=== PATIENT | male | born 1970 | race American Indian/Alaskan Native ===

== ENCOUNTER 2018-11-13 05:28 | Observation (INO) | payer MEDICAID ==
--- NOTE | 2018-11-13 05:56 | C.PDOC ---
History Of Present Illness 48 year old male with PMHx of DM, HTN and HLD presents to the ED for evaluation of a syncopal episode. Patient reports that the got up to used the bathroom while urinating, the next he remembers was getting up from the floor. Patient reports having similar episode of passing out last month, he passed out in the side walk was taken to [facility] Patient reports he was told he had a "heart condition" and discharged. Patient also c/o epigastric abdominal pain. Patient states he has chronic shortness of breath that has been going on for a while, still a smoker. Patient is currently taking lantus for his diabetes. Patient denies fever, chills, nausea, vomit, changes in urination. <Chao St - Last Filed: 11/13/18 07:09> History Per: Patient History/Exam Limitations: no limitations Onset/Duration Of Symptoms: Hrs Current Symptoms Are (Timing): Still Present Number Of Syncopal Episodes: 1 Activity At Onset Of Symptoms: Standing Associated Symptoms Preceding Syncopal Episode: No Predromal Symptoms (Sudden Onset) Seizure Or Post-ictal Symptoms: None Severity: None Recent travel outside of the [place]: No Additional History Per: Patient <Chao St - Last Filed: 11/13/18 07:09> <Griselda Palma - Last Filed: 11/13/18 11:41> Time Seen by Provider: 11/13/18 05:35 Chief Complaint (Nursing): Syncope Past Medical History Reviewed: Historical Data, Nursing Documentation, Vital Signs Vital Signs: Last Vital Signs Temp 98 F 11/13/18 05:40 Pulse 55 L 11/13/18 05:40 Resp 18 11/13/18 05:40 BP 146/85 11/13/18 05:40 Pulse Ox 99 11/13/18 05:40 - Medical History PMH: Diabetes, HTN, Hyperlipidemia Surgical History: No Surg Hx Family History: States: Unknown Family Hx - Social History Hx Alcohol Use: No Hx Substance Use: No - Immunization History Hx Tetanus Toxoid Vaccination: No Hx Influenza Vaccination: No Hx Pneumococcal Vaccination: No <Chao St - Last Filed: 11/13/18 07:09> Vital Signs: Last Vital Signs Temp 98 F 11/13/18 05:40 Pulse 55 L 11/13/18 05:40 Resp 18 11/13/18 05:40 BP 146/85 11/13/18 05:40 Pulse Ox 99 11/13/18 07:10 <Griselda Palma - Last Filed: 11/13/18 11:41> Review Of Systems Constitutional: Negative for: Fever, Chills Eyes: Negative for: Redness, Other (scleral icterus) ENT: Negative for: Mouth Swelling Cardiovascular: Negative for: Chest Pain Respiratory: Positive for: Shortness of Breath (chronic as per patient). Negative for: Cough Gastrointestinal: Positive for: Abdominal Pain. Negative for: Nausea, Vomiting, Diarrhea Genitourinary: Negative for: Dysuria, Hematuria Musculoskeletal: Negative for: Back Pain Skin: Negative for: Rash Neurological: Negative for: Weakness, Numbness, Dizziness <Chao St Last Filed: 11/13/18 07:09> Physical Exam - Physical Exam Appears: Well, Non-toxic, No Acute Distress, Other (no obsvious signs of trauma) Skin: Normal Color, Warm, No Rash Head: Atraumatic, Normacephalic Eye(s): bilateral: Normal Inspection (no scleral icterus), PERRL, EOMI Ear(s): Bilateral: Normal (no drainage) Nose: Normal Oral Mucosa: Moist Throat: Normal, No Erythema, No Exudate, Other (no swelling or injection. Airway patent) Neck: Normal ROM, Supple Chest: Symmetrical Cardiovascular: Rhythm Regular Respiratory: No Accessory Muscle Use, Other (normal inspiratory effort) Gastrointestinal/Abdominal: Soft, No Distention Back: No CVA Tenderness Extremity: Capillary Refill (< 2 seconds) Extremity: Bilateral: Atraumatic, Normal ROM, Other (good strenght in all extremities) Pulses: Left Dorsalis Pedis: Normal, Right Dorsalis Pedis: Normal Neurological/Psych: Oriented x3, Normal Speech, Other (cranial nerves grossly intact) Gait: Steady <Chao St Last Filed: 11/13/18 07:09> ED Course And Treatment - Laboratory Results Result Diagrams: 11/13/18 06:13 11/13/18 06:13 O2 Sat by Pulse Oximetry: 99 (ON RA) Pulse Ox Interpretation: Normal <Chao St Last Filed: 11/13/18 07:09> - Laboratory Results Result Diagrams: 11/13/18 06:13 11/13/18 06:13 Lab Results: PT 11.3 SECONDS (9.7-12.2) 11/13/18 06:13 INR 1.0 11/13/18 06:13 D-Dimer, Quantitative Cancelled 11/13/18 06:13 Troponin I < 0.0120 ng/mL (0.00-0.120) 11/13/18 06:13 Total Bilirubin 0.6 mg/dL (0.2-1.3) 11/13/18 06:13 AST 32 U/L (17-59) 11/13/18 06:13 ALT 23 U/L (21-72) 11/13/18 06:13 Alkaline Phosphatase 55 U/L (38-126) 11/13/18 06:13 Total Protein 7.0 g/dL (6.3-8.3) 11/13/18 06:13 Albumin 3.9 g/dL (3.5-5.0) 11/13/18 06:13 Globulin 3.1 gm/dL (2.2-3.9) 11/13/18 06:13 Albumin/Globulin Ratio 1.3 (1.0-2.1) 11/13/18 06:13 Lipase 73 U/L (23-300) 11/13/18 06:13 Urine Color Yellow (YELLOW) 11/13/18 06:40 Urine Clarity Hazy (Clear) 11/13/18 06:40 Urine pH 5.0 (5.0-8.0) 11/13/18 06:40 Ur Specific [place] 1.012 (1.003-1.030) 11/13/18 06:40 Urine Protein Negative mg/dL (NEGATIVE) 11/13/18 06:40 Urine Glucose (UA) Normal mg/dL (Normal) 11/13/18 06:40 Urine Ketones Negative mg/dL (NEGATIVE) 11/13/18 06:40 Urine Blood Negative (NEGATIVE) 11/13/18 06:40 Urine Nitrate Negative (NEGATIVE) 11/13/18 06:40 Urine Bilirubin Negative (NEGATIVE) 11/13/18 06:40 Urine Urobilinogen Normal mg/dL (0.2-1.0) 11/13/18 06:40 Ur Leukocyte Esterase Neg Max/uL (Negative) 11/13/18 06:40 Urine WBC (Auto) < 1 /hpf (0-5) 11/13/18 06:40 Urine RBC (Auto) < 1 /hpf (0-3) 11/13/18 06:40 - CT Scan/US Head CT Other Rad Studies (CT/US): Interpreted By Me, Read By Radiologist CT/US Interpretation: Name:DEL CAMARILLO Exam Date:Nov 13, 2018 6:16:09 AM EDT. Modality Type:CT. Description:CT - BRAIN WITH CORONAL AND SAGITTAL MPRS. Gender:M Laterality:Not applicable. :66 Referring Physician:KRYSTLE Metzger. CT scan of the head. CLINICAL HISTORY: Headache. TECHNIQUE: Multiple axial CT images were obtained through the brain without IV contrast material. COMMENTS: There is normal configuration of sella turcica. There are no intra or extra-axial collections. There is no mass effect or midline shift. There is no evidence of hematoma formation. No hydrocephalus is present. The ventricles are symmetrical. No abnormal calcifications are present. There is diffuse age-appropriate cerebellar and cerebral atrophy with proportionally dilated ventricles and cortical sulci. There are bilateral periventricular and subcortical white matter hypolucencies compatible with mild chronic microvascular disease. Otherwise, no significant focal abnormalities are seen either in the posterior fossa or supratentorial compartment. IMPRESSION: 1. Age-appropriate cerebellar and cerebral atrophy. 2. Mild chronic microvascular disease. 3. No evidence of acute intracranial pathology. Thank you for your kind referral of this patient. . Electronically signed on Nov 13, 2018 7:21:09 AM EDT by: Akosua Powell M.D., Certified by SAMSON, MSK, Neuroradiology <Griselda Palma - Last Filed: 11/13/18 11:41> Medical Decision Making Medical Decision Making: Plan: * CT head * EKG * Labs * CXR * UA <Chao St - Last Filed: 11/13/18 07:09> Disposition <Chao St - Last Filed: 11/13/18 07:09> - Disposition Disposition Time: 11:41 <Griselda Palma - Last Filed: 11/13/18 11:41> - Disposition Disposition: HOSPITALIZED Condition: FAIR Forms: [employer] (Yi) - Clinical Impression Clinical Impression: Syncope - PA / [employer] / Resident Statement MD/DO has reviewed & agrees with the documentation as recorded. - Scribe Statement The provider has reviewed the documentation as recorded by the Scribe Gustavo Moore All medical record entries made by the Scribe were at my direction and person ally dictated by me. I have reviewed the chart and agree that the record accurately reflects my personal performance of the history, physical exam, medical decision making, and the department course for this patient. I have also personally directed, reviewed, and agree with the discharge instructions and disposition. <Chao St - Last Filed: 11/13/18 07:09> Physician Patient Turnover Patient Signed Over To: Griselda Palma Handoff Comments: syncope work up <Chao St - Last Filed: 11/13/18 07:09> Addendum Addendum: 11/13/18 11:31 EKG: Sinus bradycardia 51 bpm nonspecific T wave changes Accession No. : [id number] Patient Name / ID : RABIA MATHIS / [id number] Exam Date : 11/13/2018 09:48:17 ( Approved ) Study Comment : Sex / Age : M / 48Y Creator : Wayne Mittal MD Dictator : Wayne Mittal MD Incident Handler : [employer] Service Operator : Wayne Mittal MD Approver2 : Report Date : 11/13/2018 10:41:21 My Comment : Date of service: 11/13/2018 PROCEDURE: CT Chest with contrast (Pulmonary Angiogram) HISTORY: Syncope, elevated Ddimer COMPARISON: Correlation made with prior chest radiograph obtained earlier same day. TECHNIQUE: Axial computed tomography images were obtained of the chest in the pulmonary arterial phase of enhancement. Coronal and sagittal reformatted images were created and reviewed. Intravenous contrast dose: 100 cc Visipaque 320 Radiation dose: Total exam DLP = 630.31 mGy-cm. This CT exam was performed using one or more of the following dose reduction techniques: Automated exposure control, adjustment of the mA and/or kV according to patient size, and/or use of iterative reconstruction technique. FINDINGS: PULMONARY ARTERIES: The visualized portions of the pulmonary trunk, right and left main, lobar, segmental and proximal subsegmental branches of the pulmonary arteries are well opacified with obvious filling defects seen to suggest central pulmonary embolus. AORTA: No acute findings. No thoracic aortic aneurysm. No aortic atherosclerotic calcification or mural plaque present. LUNGS: Mild passive/dependent type atelectasis seen both posterior lower lung pizarro. Minimal linear scarring seen in the right middle lobe PLEURAL SPACES: Unremarkable. No effusion or pneumothorax. HEART: Unremarkable. Heart size borderline enlarged. No significant pericardial effusion. LYMPH NODES: There are several small nonspecific mediastinal lymph nodes Note also made of a small approximately 7 mm left parasagittal level 1-submental lymph node. Trachea midline and patent with no large central endoluminal lesions. BONES, CHEST WALL: Mild multilevel degenerative spondylosis of the thoracic spine. There are no acute compression fractures no retropulsed fragments. Minimal changes of bilateral gynecomastia OTHER FINDINGS: Minimal changes of bilateral gynecomastia. None IMPRESSION: No evidence of acute central pulmonary embolus. Mild passive/dependent type atelectasis both posterior lower lung pizarro. Accession No. : [id number] Patient Name / ID : RABIA MATHIS / [id number] Exam Date : 11/13/2018 06:16:09 ( Approved ) Study Comment : Sex / Age : M / 48Y Creator : Waylon Conte MD Dictator : Waylon Conte MD Incident Handler : [employer] Service Operator : Waylon Conte MD Approver2 : Report Date : 11/13/2018 08:40:08 My Comment : Date of service: 11/13/2018 PROCEDURE: CT HEAD WITHOUT CONTRAST. HISTORY: Headache. Evaluate for hemorrhage. COMPARISON: None available. TECHNIQUE: Axial computed tomography images were obtained through the head/brain without intravenous contrast. Radiation dose: Total exam DLP = 1186 mGy-cm. This CT exam was performed using one or more of the following dose reduction techniques: Automated exposure control, adjustment of the mA and/or kV according to patient size, and/or use of iterative reconstruction technique. FINDINGS: HEMORRHAGE: No intracranial hemorrhage. BRAIN: No mass effect or edema. Scattered focal lucencies in the subcortical and periventricular white matter suggestive for chronic microvascular ischemic change. Prominence of the bifrontal extra-axial spaces. Mild cerebellar atrophy. Diffuse generalized parenchymal atrophy. VENTRICLES: Unremarkable. No hydrocephalus. CALVARIUM: Unremarkable. PARANASAL SINUSES: Unremarkable as visualized. No significant inflammatory changes. MASTOID AIR CELLS: Unremarkable as visualized. No inflammatory changes. OTHER FINDINGS: None. IMPRESSION: No acute intracranial abnormality. Mild chronic microvascular ischemic changes. Diffuse generalized parenchymal atrophy. If symptoms persists, consider correlation with MRI. A preliminary report was generated at 7:21 a.m. on 11/13/[address] Akosua Powell [facility] who accepted patient to her service to [facility] for observation. <Griselda Palma - Last Filed: 11/13/18 11:41> Decision To Admit <Chao St - Last Filed: 11/13/18 07:09> - Pt Status Changed To: Hospital Disposition Of: Observation - . Bed Request Type: Telemetry Admitting Physician: Joslyn Fu <Griselda Palma - Last Filed: 11/13/18 11:41> - . Patient Diagnosis: Syncope
[2018-11-13 06:16] LABS: EOS # 0.2 K/uL (0.0-0.7); EOS % 3.4 % (0.0-4.0); HEMOGLOBIN 13.4 g/dL (12.0-18.0); LYMPH # 1.9 K/uL (1.0-4.3); LYMPH % 40.1 % (20.0-40.0); MEAN CORPUSCULAR HEMOGLOBIN 30.1 pg (27.0-31.0); MEAN CORPUSCULAR HGB CONC 33.1 g/dL (33.0-37.0); MEAN PLATELET VOLUME 7.4 fL (7.2-11.7); MONO # 0.3 K/uL (0.0-0.8); MONO % 7.2 % (0.0-10.0); NEUT # 2.2 K/uL (1.8-7.0); NEUT % 48.3 % (50.0-75.0); NRBC % 0.1 % (0.0-2.0); RBC 4.44 Mil/uL (4.40-5.90); RED CELL DISTRIBUTION WIDTH 13.9 % (11.5-14.5); WHITE BLOOD COUNT 4.6 K/uL (4.8-10.8)
[2018-11-13 06:32] LABS: ALB/GLOB RATIO 1.3 (1.0-2.1); ALBUMIN 3.9 g/dL (3.5-5.0); BLOOD UREA NITROGEN 13 mg/dL (9-20); CALCIUM 8.1 mg/dl (8.6-10.4); GFR NON-AFRICAN AMERICAN 58; LIPASE 73 U/L (23-300)
[2018-11-13 06:35] LABS: ALT/SGPT 23 U/L (21-72); AST/SGOT 32 U/L (17-59); PROTHROMBIN TIME 11.3 SECONDS (9.7-12.2)
[2018-11-13 06:45] LABS: URINE BILIRUBIN NEGATIVE (NEGATIVE); URINE BLOOD NEGATIVE (NEGATIVE); URINE CLARITY Hazy (Clear); URINE COLOR Yellow (YELLOW); URINE GLUCOSE (UA) NORMAL (Normal); URINE LEUKOCYTE ESTERASE NEG Leu/uL (Negative); URINE PROTEIN NEGATIVE (NEGATIVE); URINE UROBILINOGEN NORMAL mg/dL (0.2-1.0)
--- NOTE | 2018-11-13 08:43 | CT ---
Date of service: 11/13/2018 PROCEDURE: CT HEAD WITHOUT CONTRAST. HISTORY: Headache. Evaluate for hemorrhage. COMPARISON: None available. TECHNIQUE: Axial computed tomography images were obtained through the head/brain without intravenous contrast. Radiation dose: Total exam DLP = 1186 mGy-cm. This CT exam was performed using one or more of the following dose reduction techniques: Automated exposure control, adjustment of the mA and/or kV according to patient size, and/or use of iterative reconstruction technique. FINDINGS: HEMORRHAGE: No intracranial hemorrhage. BRAIN: No mass effect or edema. Scattered focal lucencies in the subcortical and periventricular white matter suggestive for chronic microvascular ischemic change. Prominence of the bifrontal extra-axial spaces. Mild cerebellar atrophy. Diffuse generalized parenchymal atrophy. VENTRICLES: Unremarkable. No hydrocephalus. CALVARIUM: Unremarkable. PARANASAL SINUSES: Unremarkable as visualized. No significant inflammatory changes. MASTOID AIR CELLS: Unremarkable as visualized. No inflammatory changes. OTHER FINDINGS: None. IMPRESSION: No acute intracranial abnormality. Mild chronic microvascular ischemic changes. Diffuse generalized parenchymal atrophy. If symptoms persists, consider correlation with MRI. A preliminary report was generated at 7:21 a.m. on 11/13/[address] Akosua Powell from [employer] [employer].
[2018-11-13] MEDS ORDERED: Iodixanol 320 MG/ML 100 ML BOTTLE IV ONE (09:14)
--- NOTE | 2018-11-13 09:58 | RAD ---
Date of service: 11/13/2018 HISTORY: Shortness of breath COMPARISON: No prior. TECHNIQUE: Chest PA and lateral FINDINGS: LUNGS: Mild venous congestion. Minimal patchy increased markings at the left lung base. PLEURA: No significant pleural effusion identified. No pneumothorax apparent. CARDIOVASCULAR: No aortic atherosclerotic calcification present. Tortuous ectatic aorta. Mild cardiomegaly. OSSEOUS STRUCTURES: Degenerative changes in the spine. VISUALIZED UPPER ABDOMEN: Normal. OTHER FINDINGS: None. IMPRESSION: Mild venous congestion. Minimal patchy increased markings at the left lung base.
--- NOTE | 2018-11-13 10:44 | CT ---
Date of service: 11/13/2018 PROCEDURE: CT Chest with contrast (Pulmonary Angiogram) HISTORY: Syncope, elevated Ddimer COMPARISON: Correlation made with prior chest radiograph obtained earlier same day. TECHNIQUE: Axial computed tomography images were obtained of the chest in the pulmonary arterial phase of enhancement. Coronal and sagittal reformatted images were created and reviewed. Intravenous contrast dose: 100 cc Visipaque 320 Radiation dose: Total exam DLP = 630.31 mGy-cm. This CT exam was performed using one or more of the following dose reduction techniques: Automated exposure control, adjustment of the mA and/or kV according to patient size, and/or use of iterative reconstruction technique. FINDINGS: PULMONARY ARTERIES: The visualized portions of the pulmonary trunk, right and left main, lobar, segmental and proximal subsegmental branches of the pulmonary arteries are well opacified with obvious filling defects seen to suggest central pulmonary embolus. AORTA: No acute findings. No thoracic aortic aneurysm. No aortic atherosclerotic calcification or mural plaque present. LUNGS: Mild passive/dependent type atelectasis seen both posterior lower lung pizarro. Minimal linear scarring seen in the right middle lobe PLEURAL SPACES: Unremarkable. No effusion or pneumothorax. HEART: Unremarkable. Heart size borderline enlarged. No significant pericardial effusion. LYMPH NODES: There are several small nonspecific mediastinal lymph nodes Note also made of a small approximately 7 mm left parasagittal level 1-submental lymph node. Trachea midline and patent with no large central endoluminal lesions. BONES, CHEST WALL: Mild multilevel degenerative spondylosis of the thoracic spine. There are no acute compression fractures no retropulsed fragments. Minimal changes of bilateral gynecomastia OTHER FINDINGS: Minimal changes of bilateral gynecomastia. None IMPRESSION: No evidence of acute central pulmonary embolus. Mild passive/dependent type atelectasis both posterior lower lung pizarro.
[2018-11-13] MEDS ORDERED: Glucagon Recombinant 1 mg Inj IM PRN (13:00)
[2018-11-13] MEDS ORDERED: Dextrose 50% SYRINGE Inj (50 ml) IV PRN (13:00)
--- NOTE | 2018-11-13 16:36 | CP.PCM.CON ---
History of Present Illness - History of Present Illness History of Present Illness: 48 year old male with PMHx of DM, HTN and HLD presents to the ED for evaluation of a syncopal episode. Patient reports that the got up to used the bathroom while urinating, the next he remembers was getting up from the floor. Patient r dean having similar episode of passing out last month, he passed out in the side walk was taken to [facility] [place]. Patient reports he was told he had a "heart condition" and discharged. Patient also c/o epigastric abdominal pain. Patient states he has chronic shortness of breath that has been going on for a while, still a smoker. Patient is currently taking lantus for his diabetes. Patient denies fever, chills, nausea, vomit, changes in urination. Past Patient History - Infectious Disease Hx of Infectious Diseases: None - Past Social History Smoking Status: Light Smoker < 10 Cigarettes Daily - CARDIAC Hx Hypertension: Yes - ENDOCRINE/METABOLIC Hx Diabetes Insipidus: Yes - PSYCHIATRIC Hx Substance Use: No - SURGICAL HISTORY Hx Surgeries: No - ANESTHESIA Hx Anesthesia: No Meds Allergies/Adverse Reactions: Allergies Allergy/AdvReac Type Severity Reaction Status Date / Time ibuprofen [From Motrin] Allergy Verified 11/13/18 05:36 - Medications Medications: Current Medications Aspirin (Ecotrin) 81 mg PO DAILY [facility] Dextrose (Dextrose 50% Inj) 0 ml IV STAT PRN; Protocol PRN Reason: Hypoglycemia Protocol Dextrose (Glutose 15) 0 gm PO ONCE PRN; Protocol PRN Reason: Hypoglycemia Protocol Glucagon (Glucagen Diagnostic Kit) 0 mg IM STAT PRN; Protocol PRN Reason: Hypoglycemia Protocol Dextrose (Dextrose 5% In Water 1000 Ml) 1,000 mls @ 0 mls/hr IV .Q0M PRN; Protocol PRN Reason: Hypoglycemia Protocol Insulin Human Regular (Novolin R) 0 unit SC ACHS [facility]; Protocol Metformin HCl (Glucophage) 500 mg PO BIDCC SAIDA Rosuvastatin Calcium (Crestor) 5 mg PO QD5 [facility] Physical Exam - Head Exam Head Exam: NORMOCEPHALIC - Neck Exam Neck exam: Positive for: Normal Inspection - Respiratory Exam Respiratory Exam: NORMAL BREATHING PATTERN - Cardiovascular Exam Cardiovascular Exam: REGULAR RHYTHM - Neurological Exam Neurological exam: Alert, Oriented x3 Results - Vital Signs Recent Vital Signs: Last Vital Signs Temp 98.1 F 11/13/18 12:38 Pulse 75 11/13/18 15:30 Resp 18 11/13/18 12:38 BP 148/96 H 11/13/18 12:38 Pulse Ox 98 11/13/18 12:38 - Labs Result Diagrams: 11/13/18 06:13 11/13/18 06:13 Labs: Laboratory Results - last 24 hr 11/13/18 11/13/18 11/13/18 05:43 06:13 06:13 WBC 4.6 L RBC 4.44 Hgb 13.4 Hct 40.4 MCV 91.0 MCH 30.1 MCHC 33.1 RDW 13.9 Plt Count 305 MPV 7.4 Neut % (Auto) 48.3 L Lymph % (Auto) 40.1 H [place] % (Auto) 7.2 Eos % (Auto) 3.4 Baso % (Auto) 1.0 Neut # (Auto) 2.2 Lymph # (Auto) 1.9 [place] # (Auto) 0.3 Eos # (Auto) 0.2 Baso # (Auto) 0.0 PT 11.3 INR 1.0 D-Dimer, Quantitative Cancelled Sodium Potassium Chloride Carbon Dioxide Anion Gap BUN Creatinine Est GFR ( Amer) Est GFR (Non-Af Amer) POC Glucose (mg/dL) 109 Random Glucose Calcium Total Bilirubin AST ALT Alkaline Phosphatase Troponin I Total Protein Albumin Globulin Albumin/Globulin Ratio Lipase Urine Color Urine Clarity Urine pH Ur Specific [place] Urine Protein Urine Glucose (UA) Urine Ketones Urine Blood Urine Nitrate Urine Bilirubin Urine Urobilinogen Ur Leukocyte Esterase Urine WBC (Auto) Urine RBC (Auto) Alcohol, Quantitative 11/13/18 11/13/18 11/13/18 06:13 06:40 07:40 WBC RBC Hgb Hct MCV MCH MCHC RDW Plt Count MPV Neut % (Auto) Lymph % (Auto) [place] % (Auto) Eos % (Auto) Baso % (Auto) Neut # (Auto) Lymph # (Auto) [place] # (Auto) Eos # (Auto) Baso # (Auto) PT INR D-Dimer, Quantitative 370 H Sodium 135 Potassium 4.4 Chloride 102 Carbon Dioxide 29 Anion Gap 8 L BUN 13 Creatinine 1.3 Est GFR ( Amer) > 60 Est GFR (Non-Af Amer) 58 POC Glucose (mg/dL) Random Glucose 93 Calcium 8.1 L Total Bilirubin 0.6 AST 32 ALT 23 Alkaline Phosphatase 55 Troponin I < 0.0120 Total Protein 7.0 Albumin 3.9 Globulin 3.1 Albumin/Globulin Ratio 1.3 Lipase 73 Urine Color Yellow Urine Clarity Hazy Urine pH 5.0 Ur Specific [place] 1.012 Urine Protein Negative Urine Glucose (UA) Normal Urine Ketones Negative Urine Blood Negative Urine Nitrate Negative Urine Bilirubin Negative Urine Urobilinogen Normal Ur Leukocyte Esterase Neg Urine WBC (Auto) < 1 Urine RBC (Auto) < 1 Alcohol, Quantitative < 10 11/13/18 12:37 WBC RBC Hgb Hct MCV MCH MCHC RDW Plt Count MPV Neut % (Auto) Lymph % (Auto) [place] % (Auto) Eos % (Auto) Baso % (Auto) Neut # (Auto) Lymph # (Auto) [place] # (Auto) Eos # (Auto) Baso # (Auto) PT INR D-Dimer, Quantitative Sodium Potassium Chloride Carbon Dioxide Anion Gap BUN Creatinine Est GFR ( Amer) Est GFR (Non-Af Amer) POC Glucose (mg/dL) 105 Random Glucose Calcium Total Bilirubin AST ALT Alkaline Phosphatase Troponin I Total Protein Albumin Globulin Albumin/Globulin Ratio Lipase Urine Color Urine Clarity Urine pH Ur Specific [place] Urine Protein Urine Glucose (UA) Urine Ketones Urine Blood Urine Nitrate Urine Bilirubin Urine Urobilinogen Ur Leukocyte Esterase Urine WBC (Auto) Urine RBC (Auto) Alcohol, Quantitative Assessment & Plan (1) Syncope Assessment and Plan: sypmtoms suggestive of Vasovagal. Cardiac work-up negative so far. Consider Tilt table and Event monitor. Status: Acute
--- NOTE | 2018-11-13 17:01 | CON ---
DATE: 11/13/2018 CHIEF COMPLAINT: Syncope. HISTORY OF PRESENT ILLNESS: This is a 48-year-old male with history of type 2 diabetes mellitus, hypertension, dyslipidemia here for evaluation of syncopal episode. Apparently, the patient had got up to use the bathroom. While urinating, the next thing he remembers he is on the floor. The patient had a similar episode a few weeks ago when he passed out while he was walking and was taken to [facility] where he had negative workup. Currently, he denies any focal weakness. He had some mild chronic shortness of breath. Otherwise no focal weakness or paresthesias of the extremities. PAST MEDICAL HISTORY: As above. SOCIAL HISTORY: No illicit drug abuse, smoking, or ETOH abuse at this time. ALLERGIES: IBUPROFEN. FAMILY HISTORY: Noncontributory. REVIEW OF SYSTEMS: A 14-point review of system is negative except for the HPI. LABORATORY DATA: Sodium is 135, potassium 4.4, chloride 102, carbon dioxide 29, BUN of 13, creatinine of 1.3, blood glucose of 105. PHYSICAL EXAMINATION: GENERAL: The patient is sitting up in bed, no acute distress. VITAL SIGNS: Temperature 98, pulse rate of 62, blood pressure 153/82, respiratory rate of 18, oxygen saturation 100% on room air. HEENT: Atraumatic, normocephalic. PERRLA. Extraocular muscles are intact. NECK: Supple. No JVD. No adenopathy. LUNGS: Clear to auscultation. No adventitious sounds. HEART: S1 and S2. Normal rate and rhythm. No murmurs, rubs, or gallops. ABDOMEN: Soft, nontender, nondistended. Bowel sounds present. EXTREMITIES: No clubbing, no cyanosis. Peripheral pulses 2+ felt bilaterally. NEUROLOGICAL: The patient is alert and oriented to person and place, month and year. Cranial nerves II through XII intact. Motor exam: Moves all extremities equally. Tone is normal. Sensory exam: Mild decrease in sensation up to the calves bilaterally. Decreased vibration of the toes. DTRs are 2+ throughout. Coordination, finger-nose intact. No dysmetria noted. Gait is deferred for now. IMPRESSION: Syncope, most likely of the vasovagal type rather than seizure. Vasovagal is most likely to micturition syncope. PLAN: At this time, will recommend: 1. Monitor blood sugar, keep it between 140 to 180. 2. Aspirin 81 mg and Crestor 5 mg for stroke prevention. 3. Monitor hydration throughout the day. 4. Carotid Doppler. 5. He is clinically stable from my standpoint. Thank you for this consultation. Neftali Espitia MD
[2018-11-13] MEDS: (Novolin R) Insulin Human Regular 100 units/ml vial SC SCH ×2 (17:42→21:58)
[2018-11-14 08:26] VITALS: RESP 20
[2018-11-14] MEDS ORDERED: Enoxaparin 40 mg Syringe SC SCH (10:00)
--- NOTE | 2018-11-14 12:44 | CARD ---
APPROVED REPORT Date of service: 11/13/2018 EKG Measurement Heart [id number] <Conclusion> Sinus bradycardia Nonspecific T wave abnormality Abnormal ECG
[2018-11-14] MEDS: (Novolin R) Insulin Human Regular 100 units/ml vial SC SCH ×3 (14:24→18:06)
[2018-11-14 15:40] VITALS: PULSE 78
[2018-11-14 16:28] VITALS: BP 136/77; TEMP 98.8; O2SAT 100
[2018-11-14 17:30] LABS: IRON < 10 ug/dL (49-181); TOTAL IRON BINDING CAPACITY 182 ug/dL (250-450)
[2018-11-14 17:31] LABS: % IRON SATURATION 0.6 (20-55)
--- NOTE | 2018-11-14 19:03 | CP.PCM.PN ---
Subjective - Date & Time of Evaluation Date of Evaluation: 11/14/18 Time of Evaluation: 19:02 - Subjective Subjective: No new episodes of syncope. bed side. wants to go home. Objective - Vital Signs/Intake and Output Vital Signs (last 24 hours): Temp Pulse Resp BP Pulse Ox 98.8 F 78 20 136/77 100 11/14/18 15:15 11/14/18 15:30 11/14/18 15:15 11/14/18 15:15 11/14/18 15:15 - Medications Medications: Current Medications Aspirin (Ecotrin) 81 mg PO DAILY [facility] Last Admin: 11/14/18 10:27 Dose: 81 mg Dextrose (Dextrose 50% Inj) 0 ml IV STAT PRN; Protocol PRN Reason: Hypoglycemia Protocol Dextrose (Glutose 15) 0 gm PO ONCE PRN; Protocol PRN Reason: Hypoglycemia Protocol Enoxaparin Sodium (Lovenox) 40 mg SC DAILY [facility] Last Admin: 11/14/18 10:27 Dose: 40 mg Glucagon (Glucagen Diagnostic Kit) 0 mg IM STAT PRN; Protocol PRN Reason: Hypoglycemia Protocol Dextrose (Dextrose 5% In Water 1000 Ml) 1,000 mls @ 0 mls/hr IV .Q0M PRN; Protocol PRN Reason: Hypoglycemia Protocol Insulin Human Regular (Novolin R) 0 unit SC ACHS [facility]; Protocol Last Admin: 11/14/18 18:06 Dose: Not Given Metformin HCl (Glucophage) 500 mg PO BIDCC [facility] Last Admin: 11/14/18 18:05 Dose: 500 mg Rosuvastatin Calcium (Crestor) 5 mg PO QD5 [facility] - Labs Labs: 11/13/18 06:13 11/13/18 06:13 PT 11.3 SECONDS (9.7-12.2) 11/13/18 06:13 INR 1.0 11/13/18 06:13 Assessment and Plan (1) Syncope Status: Acute
[2018-11-14 19:44] LABS: FOLATE 9.6 ng/mL
--- NOTE | 2018-11-14 21:07 | CP.PCM.PCO ---
Physician Communication Note - Physician Communication Note Physician Communication Note: Pt requested to leave AMA. Pt A&Ox3, informed the risks. Pt signed AMA.
--- NOTE | 2018-11-15 06:50 | HP ---
CHIEF COMPLAINT: Passing out. HISTORY OF PRESENT ILLNESS: The patient is a 48-year-old male with past medical history of diabetes mellitus, hypertension, hypercholesterolemia, came to the emergency room for evaluation of syncope. The patient reports that he got up to use his bathroom. While urinating, the next remember was getting up from the floor. The patient is reporting having similar episode of passing out. Last month, he passed out in the sidewalk, was taken to [facility]. The patient reports he was told had heart condition and discharged. The patient is also complaining of epigastric abdominal pain. The patient states that he has chronic shortness of breath that has been going on for a while, still is actively smoking. The patient is currently taking Lantus for his diabetes. No fever. No chills. No hematuria or hematochezia. No headache or dizziness. PAST MEDICAL HISTORY: Hypertension, diabetes mellitus, hypercholesterolemia. FAMILY HISTORY: Father and mother noncontributory. HABITS: Smoking, yes. Alcohol, no. Substance abuse, no. REVIEW OF SYSTEMS: The patient was seen and examined at the bedside, looking comfortable. No fever. No chills. No hematuria. No hematochezia. No headaches. No dizziness. No chest pain or palpitations. PHYSICAL EXAMINATION: VITAL SIGNS: Temperature 98, pulse 55, respiratory rate 18, blood pressure 147/85, pulse oximetry 99%. HEENT: Head is normocephalic and atraumatic. Eyes: PERRLA. Extraocular muscles intact. Conjunctivae clear. Nose patent. Mucous membranes moist. NECK: Supple. No carotid bruits. No JVD. No thyromegaly. CHEST: Bilaterally symmetrical. HEART: S1 and S2 positive. LUNGS: Clear to auscultation. ABDOMEN: Soft. Bowel sounds are positive. No organomegaly. EXTREMITIES: No edema. No cyanosis. NEUROLOGIC: The patient is awake and alert. Moving all four extremities. No focal deficits. LABORATORY DATA: White blood cells 4.6, hemoglobin 13.4, hematocrit 40.4, platelets 305. Sodium 135, potassium 4.4, BUN 30, creatinine 1.3, glucose 93. ASSESSMENT AND PLAN: The patient is a 48-year-old male with leukopenia, has a history of hypertension, diabetes mellitus, hypercholesterolemia, came with passing out second time. First time was one month ago and went to [facility], and they told him he has heart condition, now this happened second time. We admitted the patient, did a CAT scan of the head, CAT scan of the chest, carotid Doppler study bilaterally. Seen by Dr. Espitia and flight director, Dr. Estrada. Carotid Doppler shows no evidence of acute central pulmonary embolism, mild passive and dependent type atelectasis both posterior lower lung pizarro. Vasovagal most likely to micturition with syncope. continue aspirin and hydration. According to Neurology, the patient is clinically stable. I reviewed Dr. Espitia's notes and Dr. Petar Estrada's notes, flight director. Cardiac workup negative so far as per cardiology consult, he is stable and event monitoring. Meanwhile, continue present treatment. Repeat labs. We will follow up. Joslyn Fu MD MTDAnup
--- NOTE | 2018-11-15 13:30 | VASCLAB ---
Date of service: 11/14/2018 PROCEDURE: Carotid Duplex Exam. HISTORY: Syncope COMPARISON: None available. TECHNIQUE: Grayscale and duplex Doppler evaluation of the cervical carotid and vertebral arteries were performed. The common carotid, carotid bifurcations and cervical Internal Carotid Artery (ICA) and proximal External Carotid Artery (ECA) were evaluated. The vertebral arteries were evaluated for gross patency and flow direction. Report prepared by BENJI Barclay FINDINGS: RIGHT CAROTID ARTERIES: 1. Common Carotid Artery: No significant focal plaque formation of the right common carotid artery. Maximum Peak Systolic velocity: 78 cm/sec: End-diastolic velocity 14 cm/sec. 2. Carotid Bifurcation: plaque formation. Maximum Peak Systolic velocity: 61 cm/sec: End-diastolic velocity 18 cm/sec. 3. Internal Carotid Artery: Plaque description: 3.1. Proximal Segment: Peak systolic velocity 48 cm/sec: End-diastolic velocity 19 cm/sec - % stenosis 0-15% 3.2. Middle Segment: Peak systolic velocity 47 cm/sec: End-diastolic velocity 22 cm/sec - % stenosis 0-15% 3.3. Distal Segment: Peak systolic velocity 42 cm/sec: End-diastolic velocity 18 cm/sec - % stenosis 0-15% 4. External Carotid Artery: No significant focal plaque formation. Peak systolic velocity 78 cm/sec 5. ICA/CCA Ratio: 0.9 LEFT CAROTID ARTERIES: 1. Common Carotid Artery: No significant focal plaque formation of the left common carotid artery. Maximum Peak Systolic velocity: 70 cm/sec: End-diastolic velocity 17 cm/sec. 2. Carotid Bifurcation: plaque formation. Maximum Peak Systolic velocity: 55 cm/sec: End-diastolic velocity 14 cm/sec. 3. Internal Carotid Artery: Plaque description: 3.1. Proximal Segment: Peak systolic velocity 35 cm/sec: End-diastolic velocity 14 cm/sec - % stenosis 0-15% 3.2. Middle Segment: Peak systolic velocity 46 cm/sec: End-diastolic velocity 21 cm/sec - % stenosis 0-15% 3.3. Distal Segment: Peak systolic velocity 53 cm/sec: End-diastolic velocity 23 cm/sec - % stenosis 0-15% 4. External Carotid Artery: No significant focal plaque formation. Peak systolic velocity 55 cm/sec 5. ICA/CCA Ratio: 0.9 VERTEBRAL ARTERIES: 1. Right Vertebral Artery: The right vertebral artery flow direction is antegrade. 2. Left Vertebral Artery: The left vertebral artery flow direction is antegrade. OTHER FINDINGS: 1. Right Brachial Blood pressure: 115/80 mmHg. 2. Left Brachial Blood pressure: 115/70 mmHg. IMPRESSION: RIGHT: Duplex scan does not suggest hemodynamically significant stenosis of the right extracranial carotid arteries. LEFT: Duplex scan does not suggest hemodynamically significant stenosis of the left extracranial carotid arteries.
== END 2018-11-14 21:00 | disposition left against medical advice (07) ==
LOC: C.ER 05:28 → C.9E 11:30 → C.6T 12:14
PROVIDERS: ADMIT Internal Medicine; ATTEND Internal Medicine
DX: R55 Syncope and collapse (principal); R39.198 Other difficulties with micturition; D72.819 Decreased white blood cell count, unspecified; R79.1 Abnormal coagulation profile; E11.9 Type 2 diabetes mellitus without complications; I10 Essential (primary) hypertension; J98.11 Atelectasis; E78.5 Hyperlipidemia, unspecified; E78.00 Pure hypercholesterolemia, unspecified; F17.200 Nicotine dependence, unspecified, uncomplicated; Z79.4 Long term (current) use of insulin
CPT/HCPCS: 36415; 70450; 71046; 71275; 80053; 80061; 80320; 81001; 82607; 82746; 82948; 83036; 83540; 83550; 83690; 84484; 85025; 85378; 85610; 93005; 93880; 97162; 97530; 99285; G0378; G8978; G8979; J1650; Q9967